=== PATIENT | female | born 1970 | race Caucasian/White ===

== ENCOUNTER → 2017-04-30 | Outpatient (CLI) | payer OTHER | END | disposition home or self-care (01) | LOC: PLD 13:05 | DX: R87.810 Cervical high risk human papillomavirus (HPV) DNA test positive (principal) | CPT/HCPCS: 88305 ==

== ENCOUNTER 2021-08-23 22:07 | Inpatient (IN) | payer SELFPAY ==
[~2021-08-23] VITALS: Ht 167.6 cm; Wt 159.9 kg
[2021-08-23 23:53] LABS: BASOPHILS ABSOLUTE AUTO 0.04 K/mm3 (0.00-0.23); BASOPHILS PERCENT AUTO 1 % (0-2); EOSINOPHILS PERCENT AUTO 4 % (0-6); Hematocrit 42.8 % (33.0-51.0); IMMATURE GRAN ABSOLUTE AUTO 0.03 K/mm3 (0.00-0.10); IMMATURE GRAN PERCENT AUTO 0 % (0-1); LYMPHOCYTES ABSOLUTE AUTO 0.76 K/mm3 (0.84-5.20); LYMPHOCYTES PERCENT AUTO 9 % (21-46); MONOCYTES ABSOLUTE AUTO 0.61 K/mm3 (0.16-1.47); MONOCYTES PERCENT AUTO 7 % (4-13); Mean Corpuscular HGB 28.5 pg (26.0-34.0); Mean Corpuscular HGB Conc 32.7 g/dL (31.5-36.5); Mean Corpuscular Volume 87 fL (80-100); Mean Platelet Volume 10.3 fL (9.1-12.4); NEUTROPHILS ABSOLUTE AUTO 6.82 K/mm3 (1.96-9.15); NEUTROPHILS PERCENT AUTO 80 % (41-73); Platelet Count 286 K/mm3 (150-400); RDW Coefficient Variation 13.3 % (11.7-14.2); RDW Standard Deviation 42.3 fL (35.1-46.3); Red Blood Cell Count 4.92 M/mm3 (3.80-5.20); White Blood Cell Count 8.56 K/mm3 (4.00-11.30)
[2021-08-24 00:10] LABS: Albumin, Blood 3.8 g/dL (3.4-5.0); Albumin/Globulin Ratio 1.1 (0.8-1.8); Bilirubin, Total 0.8 mg/dL (0.1-1.0); Bun/Creatinine Ratio 13.9 (12.0-20.0); Calcium, Blood 9.2 mg/dL (8.5-10.1); Creatinine, Blood 0.72 mg/dL (0.40-1.00); Globulin, Blood 3.5 g/dL (2.2-4.0); Potassium, Blood 4.1 mmol/L (3.5-5.5); Total Protein, Blood 7.3 g/dL (6.4-8.2)
[2021-08-24 01:53] LABS: Influenza B, PCR NEGATIVE (NEGATIVE); Resp Syncytial Virus, PCR NEGATIVE (NEGATIVE); SARS-Cov-2 (COVID-19) PCR, MMC NEGATIVE (NEGATIVE)
[2021-08-24 01:58] LABS: Influenza A, PCR POSITIVE (NEGATIVE)
[2021-08-24 05:07] LABS: BASOPHILS ABSOLUTE AUTO 0.05 K/mm3 (0.00-0.23); BASOPHILS PERCENT AUTO 1 % (0-2); EOSINOPHILS ABSOLUTE AUTO 0.19 K/mm3 (0.00-0.68); EOSINOPHILS PERCENT AUTO 2 % (0-6); Hematocrit 41.3 % (33.0-51.0); Hemoglobin 13.5 g/dL (11.5-16.0); IMMATURE GRAN ABSOLUTE AUTO 0.03 K/mm3 (0.00-0.10); IMMATURE GRAN PERCENT AUTO 0 % (0-1); LYMPHOCYTES ABSOLUTE AUTO 0.95 K/mm3 (0.84-5.20); LYMPHOCYTES PERCENT AUTO 11 % (21-46); MONOCYTES ABSOLUTE AUTO 0.85 K/mm3 (0.16-1.47); MONOCYTES PERCENT AUTO 10 % (4-13); Mean Corpuscular HGB 28.7 pg (26.0-34.0); Mean Corpuscular HGB Conc 32.7 g/dL (31.5-36.5); Mean Corpuscular Volume 88 fL (80-100); NEUTROPHILS ABSOLUTE AUTO 6.65 K/mm3 (1.96-9.15); NEUTROPHILS PERCENT AUTO 76 % (41-73); Platelet Count 249 K/mm3 (150-400); RDW Coefficient Variation 13.3 % (11.7-14.2); RDW Standard Deviation 43.1 fL (35.1-46.3); White Blood Cell Count 8.72 K/mm3 (4.00-11.30)
[2021-08-24 05:42] LABS: Albumin, Blood 3.4 g/dL (3.4-5.0); Bilirubin, Total 0.5 mg/dL (0.1-1.0); Bun/Creatinine Ratio 13.8 (12.0-20.0); Calcium, Blood 8.6 mg/dL (8.5-10.1); Creatinine, Blood 0.72 mg/dL (0.40-1.00); Globulin, Blood 3.3 g/dL (2.2-4.0); Potassium, Blood 3.9 mmol/L (3.5-5.5); Total Protein, Blood 6.7 g/dL (6.4-8.2)
--- NOTE | 2021-08-24 06:51 | NUR ---
SHIFT SUMMARY PT ARRIVED TO ICU FROM ER [facility]IA [facility]. STANDBY ASSIST TX TO ICU BED. PT ALERT AND ORIENTED. FOLLOWING ALL COMMANDS. BECOMES DYSPNEIC c EXERTION, ON 2-4LPM O2 VIA NC, PLACED ON CPAP WHILE SLEEPING, PT WEARS CPAP AT HOME WHILE SLEEPING. PT DENIES CP BUT C/O SOB. PT HYPERTENSIVE, MEDICATED WITH 10MG HYDRALAZINE BY ER NURSE WHICH LOWERED BP FOR ABOUT 1.5 HRS. PT WITH SBP >170 THIS MORNING AROUND 0600, HOSPITALIST NOTIFIED AND NEW ORDERS FOR 10-20MG HYDRALAZINE. 20MG HYDRALAZINE GIVEN @ 0645. PT ABLE TO AMBULATE TO BEDSIDE COMMODE WITH STANDY ASSISTANCE TO MONITOR LINES. REPORT TO ONCOMING NURSE
--- NOTE | 2021-08-24 07:15 | NUR ---
TOOK OVER CARE OF PT AT 0700, PT RESTING ON BIPAP. PT STATES SHE GET SOB AT BASELINE AMBULATING AT HOME, THAT SHE IS NOT PRESCRIBED ANY MEDICATIONS EITHER.
--- NOTE | 2021-08-24 16:13 | NUR ---
PT TRANSFERED TO MEDICAL FLOOR ON 2L N/C O2. STOOD TO TRANSFER TO [facility] AND WAS STEADY WITH STANDBY ASSIST. SOB ON EXERTION NOTICED. SHE SAID SHE DOES NOT FEEL SOB AT REST, BUT LOOKS LIKE INCREASED WORK OF BREATHING AT REST, RESP RATE 28 PER MINUTE. PT DENIES PAIN.
--- NOTE | 2021-08-24 18:32 | NUR ---
SHIFT SUMMARY MS EDGE IS A&OX4, ON 2L N/C, SAT 90% ON CONTINUOUS PULSE OX, RESP RATE 24 TO [address] UP TO 117 ON EXERTION. PRODUCTIVE COUGH. INCONTINENCE OF URINE WITH COUGHING, UP TO BEDSIDE COMMODE WITH 1 PERSON ASSISTANCE. C/O HEADACHE (PT SAID SHE THINKS IT IS FROM NO CA[place]) TYLENOL GIVEN FOR COHN. TOLERATED MOST OF SUPPER. BED LOW, CALL LIGHT IN REACH.
--- NOTE | 2021-08-25 05:28 | NUR ---
A & OX4. [place] PRECAUTIONS FOR INFLUENZA. TELE: SINUS TACH AT A HEART OF 97BM. PT ON CPAP ON 3-4LPM. DURING DAY, O2 @2LPM VIA N/C. UP TO BEDSIDE COMMODE TO VOID, 1-ASSIST. ADA DIET. IV TO L) AC. PT DENIED ANY PAIN. SOB NOTED ON EXERTION. HYPERTENSIVE; MEDICATED PER EMAR. BM THIS SHIFT. WILL CONTINUE TO MONITOR.
--- NOTE | 2021-08-25 10:46 | NUR ---
AM NOTE MS EDGE IS OX4, SLEEPY THIS MORNING, AWAKENS WITH VOICE. DENIES SOB AT REST, RESP RATE 20-24 WHILE RESTING. STRONG COUGH, SHE SAID SHE IS COUGHING UP OCCASIONAL SPUTUM. INCREASED WORK OF BREATHING WHEN GETTING UP TO THE BEDSIDE COMMODE. EDEMA TO BUE AND BLE. LEFT HAND IS PUFFY AND HAS A RING ON, FINGERS WARM, NO DECREASED SENSATION. TRIED TO REMOVE RING THIS AM UNSUCCESSFULLY - ELEVATED HAND ON PILLOW AND WILL RETRY. STRESS INCONTINENCE WITH COUGHING, OTHERWISE UP TO BSC WITH STANDY ASSIST. PLAN - ECHO. BED LOW, CALL LIGHT IN REACH.
--- NOTE | 2021-08-25 11:06 | NUR ---
AM UPDATE RING REMOVED AND GIVEN TO PT.
--- NOTE | 2021-08-25 18:23 | NUR ---
SHIFT SUMMARY MS EDGE IS A&OX4. HER BREATHING SEEMS TO BE IMPROVING THROUGHOUT THE DAY. SHE IS STILL ON CONT PULSE OX ON 2L N/C, BUT HAS BEEN MOVING AROUND MORE. SHE IS ABLE TO GET OUT OF BED INDEPENDENTLY TODAY AND WAS ASSISTED TO TAKE A SHOWER. NO C/O CHEST PAIN OR GENERALISED PAIN. ECHO HASN'T BEEN DONE YET. ON TELEMETRY , SR IN THE 70S NOW. PER FLUORESCENT SOLUTION MIXER SHE HAS BEEN SR 80-100 MOST OF THE DAY, OCCASIONALLY ST LOW 100S. EDEMA TO BUE AND BLE, BUT PT FEELS LIKE HER FEET ARE LESS EDEMATUS. BED LOW, CALL LIGHT IN REACH.
--- NOTE | 2021-08-25 18:35 | NUR ---
SHIFT SUMMARY MS PIERCE SLEPT QUITE A BIT OF THE DAY, SAT UP IN HER CHAIR FOR MEALS. STEADY GAIT WITH SB ASSIST AND WALKER TO THE BATHROOM, BED AND CHAIR ALARMS IN USE SHE FORGETS TO USE HER CALL LIGHT. PROTONIX/ NS INFUSIONS CONTINUE. VERY SMALL FORMED BROWN BM WITH A VERY SMALL AMOUNT OF DARK RED BLOOD AROUND IT EARLER THIS SHIFT, THEN PASSED A VERY SMALL DARK RED CLOTTED BLOOD THIS AFTERNOON (UNABLE TO MEASURE MIXED WITH URINE). NO NAUSEA. NO ABDOMINAL DISCOMFORT OR LIGHTHEADENESS TODAY. IN CHAIR NOW, CALL LIGHT IN REACH
--- NOTE | 2021-08-26 07:41 | NUR ---
A & OX4. V/S WNL. O2 AT 2LPM VIA N/C. ADA DIET. NO ACUCHECKS. DROPPLET PRECAUTIONS FOR INFLUENZA. CPAP WITH 3-4LPM AT HS. UP TO BEDSIDE COMMODE INDEPENDANT. BM YESTERDAY. SOB ON EXERTION. STRESS INCONTINENCE. TELE: SINUS TACHY AT A HR OF 97 BPM. WILL CONTINUE TO MONITOR.
[2021-08-26] MEDS ORDERED: Q-Tussin100 MG/5 M PO (16:37)
[2021-08-26] MEDS ORDERED: FURO40 PO (16:37)
[2021-08-26] MEDS ORDERED: OSEL75CA PO (16:37)
[2021-08-26] MEDS ORDERED: LISI5 PO (16:37)
[2021-08-26] MEDS ORDERED: METO25ER PO (16:38)
[2021-08-26] MEDS ORDERED: POTA10T PO (16:38)
--- NOTE | 2021-08-26 17:40 | NUR ---
PT DISCHARGED WITH INSTRUCTIONS 1710, WHEELCHAIR OUT TO PRIVATE CAR. PT REFUSED TO WAIT FOR OXYGEN, RT STATED SHE NEEDED 1L WITH ACTIVITY. HAS PULSE OX AND WONT OVER DO IT. KNOWS RISK AND WANTS TO GO HOME WITHOUT O2. AT BEDSIDE AND WILL DRIVE PT HOME. SENT WITH BELONGINGS.
== END 2021-08-26 17:07 | disposition home or self-care (01) | DRG 871 ==
LOC: ER 22:07 → PCU 08-24 02:57 → ICUE 08-24 04:06 → MEDS 08-24 16:10
PROVIDERS: Physician Assistant; Student in an Organized Health Care Education/Training Program; ADMIT Family Medicine
PROC: 3E03329 Introduction of Other Anti-infective into Peripheral Vein, Percutaneous Approach (ICD-10-PCS; principal; 2021-08-24)
PROC: 5A09357 Assistance with Respiratory Ventilation, Less than 24 Consecutive Hours, Continuous Positive Airway Pressure (ICD-10-PCS; 2021-08-24)
DX: A41.89 Other specified sepsis (principal); J96.01 Acute respiratory failure with hypoxia; Z68.42 Body mass index [BMI] 45.0-49.9, adult; I10 Essential (primary) hypertension; E66.01 Morbid (severe) obesity due to excess calories; G47.33 Obstructive sleep apnea (adult) (pediatric); E87.70 Fluid overload, unspecified; F17.210 Nicotine dependence, cigarettes, uncomplicated; Z20.822 Contact with and (suspected) exposure to COVID-19; J10.1 Influenza due to other identified influenza virus with other respiratory manifestations
CPT/HCPCS: 0241U; 36415; 71045; 80053; 83605; 83880; 84145; 84484; 85025; 93005; 93010; 93306; 94640; 94660; 94664; 94761; 94762; 96365; 96375; 99285-25; A9270; J0360; J0456; J0696; J1650; J1940; J2930; J7030; J7050

== ENCOUNTER 2021-11-11 11:24 | Inpatient (IN) | payer SELFPAY ==
[~2021-11-11] VITALS: Ht 170.2 cm; Wt 151.6 kg
[~2021-11-11 11:24] MED LIST: FURO40 PO; LISI5 PO; METO25ER PO; OSEL75CA PO; POTA10T PO; Q-Tussin100 MG/5 M PO
[2021-11-11 12:15] LABS: BASOPHILS ABSOLUTE AUTO 0.05 K/mm3 (0.00-0.23); BASOPHILS PERCENT AUTO 1 % (0-2); EOSINOPHILS ABSOLUTE AUTO 0.13 K/mm3 (0.00-0.68); EOSINOPHILS PERCENT AUTO 2 % (0-6); Hematocrit 44.7 % (33.0-51.0); Hemoglobin 14.8 g/dL (11.5-16.0); IMMATURE GRAN ABSOLUTE AUTO 0.04 K/mm3 (0.00-0.10); IMMATURE GRAN PERCENT AUTO 1 % (0-1); LYMPHOCYTES ABSOLUTE AUTO 1.52 K/mm3 (0.84-5.20); LYMPHOCYTES PERCENT AUTO 22 % (21-46); MONOCYTES ABSOLUTE AUTO 0.68 K/mm3 (0.16-1.47); MONOCYTES PERCENT AUTO 10 % (4-13); Mean Corpuscular HGB 28.9 pg (26.0-34.0); Mean Corpuscular HGB Conc 33.1 g/dL (31.5-36.5); Mean Corpuscular Volume 87 fL (80-100); Mean Platelet Volume 9.8 fL (9.1-12.4); NEUTROPHILS ABSOLUTE AUTO 4.43 K/mm3 (1.96-9.15); NEUTROPHILS PERCENT AUTO 65 % (41-73); Platelet Count 257 K/mm3 (150-400); RDW Coefficient Variation 14.9 % (11.7-14.2); RDW Standard Deviation 47.8 fL (35.1-46.3); Red Blood Cell Count 5.12 M/mm3 (3.80-5.20); White Blood Cell Count 6.85 K/mm3 (4.00-11.30)
[2021-11-11 12:34] LABS: Influenza A, PCR NEGATIVE (NEGATIVE); Influenza B, PCR NEGATIVE (NEGATIVE); Resp Syncytial Virus, PCR NEGATIVE (NEGATIVE)
[2021-11-11 12:38] LABS: Albumin, Blood 3.8 g/dL (3.4-5.0); Bilirubin, Total 0.8 mg/dL (0.1-1.0); Bun/Creatinine Ratio 12.7 (12.0-20.0); Calcium, Blood 8.5 mg/dL (8.5-10.1); Creatinine, Blood 0.71 mg/dL (0.40-1.00); Globulin, Blood 3.7 g/dL (2.2-4.0); Potassium, Blood 4.1 mmol/L (3.5-5.5); Total Protein, Blood 7.5 g/dL (6.4-8.2)
[2021-11-11 12:51] LABS: SARS-Cov-2 (COVID-19) PCR, MMC POSITIVE (NEGATIVE)
--- NOTE | 2021-11-11 18:16 | NUR ---
REPORT RECIEVED FROM ALLYSON VELA AT 1810.
[2021-11-12 04:15] LABS: BASOPHILS ABSOLUTE AUTO 0.01 K/mm3 (0.00-0.23); BASOPHILS PERCENT AUTO 0 % (0-2); EOSINOPHILS PERCENT AUTO 0 % (0-6); Hematocrit 44.9 % (33.0-51.0); Hemoglobin 14.5 g/dL (11.5-16.0); IMMATURE GRAN ABSOLUTE AUTO 0.04 K/mm3 (0.00-0.10); IMMATURE GRAN PERCENT AUTO 1 % (0-1); LYMPHOCYTES ABSOLUTE AUTO 1.75 K/mm3 (0.84-5.20); LYMPHOCYTES PERCENT AUTO 26 % (21-46); MONOCYTES ABSOLUTE AUTO 0.26 K/mm3 (0.16-1.47); MONOCYTES PERCENT AUTO 4 % (4-13); Mean Corpuscular HGB 28.8 pg (26.0-34.0); Mean Corpuscular HGB Conc 32.3 g/dL (31.5-36.5); Mean Corpuscular Volume 89 fL (80-100); Mean Platelet Volume 9.9 fL (9.1-12.4); NEUTROPHILS ABSOLUTE AUTO 4.61 K/mm3 (1.96-9.15); NEUTROPHILS PERCENT AUTO 69 % (41-73); Platelet Count 265 K/mm3 (150-400); RDW Coefficient Variation 15.3 % (11.7-14.2); RDW Standard Deviation 49.5 fL (35.1-46.3); Red Blood Cell Count 5.04 M/mm3 (3.80-5.20); White Blood Cell Count 6.67 K/mm3 (4.00-11.30)
[2021-11-12 04:39] LABS: Albumin, Blood 3.6 g/dL (3.4-5.0); Bilirubin, Total 0.5 mg/dL (0.1-1.0); Bun/Creatinine Ratio 19.5 (12.0-20.0); Calcium, Blood 8.1 mg/dL (8.5-10.1); Creatinine, Blood 0.72 mg/dL (0.40-1.00); Globulin, Blood 3.7 g/dL (2.2-4.0); Potassium, Blood 4.5 mmol/L (3.5-5.5); Total Protein, Blood 7.3 g/dL (6.4-8.2)
--- NOTE | 2021-11-12 06:27 | NUR ---
SHIFT SUMMARY PT ALERT AND ORIENTED X4. AFEBRILE. HR SR/ST 70-100'S. HYPERTENSIVE TO START SHIFT, RELIEF WITH HOME MEDICATIONS AND PRN LOPRESSOR +HYDRALAZINE. ON 4L NC WHILE AWAKE. ON CPAP WHILE ASLEEP, 5/20 W/ 8L BLEED IN. PT HAS EXPIRATORY WHEEZING BILATERALLY + A HARSH DRY COUGH. REFUSED ADDITIONAL BREATHING TX AFTER FIRST ONE "DIDN'T DO ANYTHING". PT FREQUENTLY NEEDING TO URINATE WHILE AWAKE. INDEPENDENT FOR ADL'S. SLEEPING COMFORTABLY SINCE MIDNIGHT. IN BED WITH CALL ALARM AT SIDE, WILL CONTINUE TO MONITOR UNTIL REPORT GIVEN TO DAYSHIFT RN
--- NOTE | 2021-11-12 08:00 | NUR ---
PT A&OX4. DENIES PAIN. ECG SHOWS SR WITH RATE 60-80S. BP 168/77-SCHEDULED ANTI-HYPERTENSIVE MEDS GIVEN. LOWER EXTREMITIES EDEMATOUS L>R-PT STATES THAT THIS IS HER BASELINE AND THAT SHE TAKES DIURETICS AT HOME INTERMITTENTLY. LUNGS COARSE WITH SCATTERED WZ AND DIMINISHED IN THE BASES. SATS>90% ON 4 LITERS NASAL CANULA. RR 22. MILD EXERTIONAL DYSPNEA NOTED. PT REPORTS OCCASIONAL PRODUCTIVE COUGH-SPECIMEN CUP AT BEDSIDE AND PT AWARE OF THE NEED FOR SPUTUM SPECIMEN. NO GI DISTRESS. PT INCONTINENT OF URINE. SPONGE BATH, NEW ATTENDS, AND LINEN CHANGE DONE BY MARSHA STEINBERG. PT STANDBY ASSIST OOB TO CHAIR FOR BREAKFAST. CALL LIGHT WITHIN REACH.
--- NOTE | 2021-11-12 09:15 | NUR ---
DR. QUILES IN TO SEE PT. FULL UPDATE GIVEN. PT CHANGED TO MED NO TELE STATUS.
--- NOTE | 2021-11-12 10:00 | NUR ---
US IN ROOM TO DO VENOUS DUPLEX OF LOWER EXTREMITIES.
--- NOTE | 2021-11-12 16:00 | NUR ---
PT SITTING AT THE BEDSIDE. LUNGS DIMINISHED TO BASES, BUT NO LONGER COARSE OR WHEEZY. SATS>90% ON 4 LITERS NASAL CANULA. SPUTUM SPECIMEN SENT. VS STABLE. PT DENIES COMPLAINTS. CALL LIGHT WITHIN REACH. PT AGREES TO CALL FOR ASSIST PRN.
--- NOTE | 2021-11-12 17:33 | NUR ---
NO ACUTE CHANGES. REPORT PHONED TO DANE MENDOZA IN PREP TO TRANSFER TO [place] [id number].
--- NOTE | 2021-11-12 18:02 | NUR ---
TRANSFER FROM PCU 13 AT 1800 COVID 19- ISOLATION, FULL CODE, NO ALLERGIES ADMITTED WITH ACUTE HYPOXIA RESPIRATORY FAILURE DUE TO COVID. SKIN IS HEALTHY. BP141/73, 74, 98% 3 L NC. LS EXPIRATORY WHEEZE, PATIENT DENIES FEELING SOB AT THIS TIME. DENIES PAIN. IS ABLE MOVE ALL EXTREMITIES. ALERT AND ORIENTATED X 4. IV- DOUBLE PORT IN RIGHT AC. EDEMA +2 LEFT LE, +3 RIGHT LE. PATIENT FEELS LIKE SHE IS ABLE TO GO HOME. RT WILL NEED TO SET UP CPAP.5 LITERS WITH BLEED IN OF 8 PER REPORT. SHE SHOULD WEAN OFF OF OXYGEN, HOME BASLINE IS 0 LITERS. HISTORY OF: COPD, CHF, HTN, EDEN, CHRONIC NEED OF 02 AT [facility], DVT, METABOLIC SYNDROME , LOW TSH, PRE DIABETIC, OBESITY. PATIENT IS ON REGULAR DIET. NO TELE. SBA, SOMETIMES UP ALONE IN HER ROOM.
--- NOTE | 2021-11-13 04:18 | NUR ---
SUMMARY: PT A/OX4, CALLS APPROPRIATELY TO SPECIFY NEEDS AND IS PLEASANT AND COOPERATIVE W/CARE. SHE REMAINS IN [place] FOR COVID 19 BUT REPORTS FEELING "MUCH BETTER". SHE'S UP INDEPENDENTLY TO BSC AND DENIES SOB AT REST OR W/EXERTION. RT TITRATING O2 AND SHE'S NOW ON 3L O2 VIA NC WA W/4L O2 BLEED IN VIA CPAP WHILE ASLEEP. LS FLUCTUATE BTWN BEING COARSE AND CLEAR AND DIM IN BASES, MOIST HACKING COUGH PERSISTS. LAB REPORTED PREVIOUS SPUTUM SPECIMEN WAS CONTAMINATED SO WAS ORDERED AGAIN, PT AWARE TO ALERT STAFF IF SAMPLE IS OBTAINED. EDEMA TO BLE'S IS 2-3+ BUT IS IMPROVING ON LASIX. AZITHROMYCIN, REMDESIVIR, OLUMIANT AND PREDNISONE BEING RECIEVED FOR COVID TX. NO ACUTE CHANGES, VSS/AFEBRILE. WCTM AND REPORT TO DAY RN.
[2021-11-13 06:23] LABS: Hematocrit 43.4 % (33.0-51.0); Hemoglobin 13.8 g/dL (11.5-16.0); Mean Corpuscular HGB Conc 31.8 g/dL (31.5-36.5); Mean Corpuscular Volume 91 fL (80-100); Mean Platelet Volume 10.3 fL (9.1-12.4); Platelet Count 294 K/mm3 (150-400); RDW Coefficient Variation 15.5 % (11.7-14.2); RDW Standard Deviation 52.4 fL (35.1-46.3); Red Blood Cell Count 4.76 M/mm3 (3.80-5.20); White Blood Cell Count 13.67 K/mm3 (4.00-11.30)
[2021-11-13 07:01] LABS: Bun/Creatinine Ratio 29.4 (12.0-20.0); Calcium, Blood 8.2 mg/dL (8.5-10.1); Creatinine, Blood 0.82 mg/dL (0.40-1.00); Thyroid Stimulating Hormone 1.4 uIU/mL (0.360-4.800); Thyroxine (T4) 7.9 ug/dL (4.8-13.9)
[2021-11-13 07:26] LABS: BAND PERCENT MAN 1 % (0-8); BASOPHILS PERCENT MAN 0 % (0-2); EOSINOPHILS PERCENT MAN 0 % (0-6); LYMPHOCYTES PERCENT MAN 41 % (21-46); MONOCYTES ABSOLUTE MAN 0.82 K/mm3 (0.16-1.47); MONOCYTES PERCENT MAN 6 % (4-13); NEUTROPHILS ABSOLUTE MAN 7.24 K/mm3 (1.96-9.15); SEG NEUTROPHILS PERCENT MAN 52 % (41-73); TOTAL CELLS COUNTED 100
--- NOTE | 2021-11-13 19:47 | NUR ---
SHIFT SUMMARY- PT HAS HAD NO ACUTE CHANGE T/O THE SHIFT. VSS. RT REDUCED PT O2 TO 2L VIA NC WHILE AWAKE. PT HAS RECIEVED 2 DOSES OF REMDESIVIER. REPORT COMPLETED WITH NIGHT RN. NO S&S OF DISTRESS.
--- NOTE | 2021-11-14 06:44 | NUR ---
SUMMARY PT O2 REDUCED TO 2LPM VIA NC. PT DENEIS SOB AT REST. PT USED CPAP THROUGH THE SHIFT. PT HAD NO ISSUES NOTED. PT REPORTS FEELING BETTER THIS EVENING. PT CURRENTLY SLEEPING IN NO DISTRESS. CALL LIGHT IN REACH.
[2021-11-14] MEDS ORDERED: ALBU90OI INH (13:01)
[2021-11-14] MEDS ORDERED: PRED20 PO (13:01)
--- NOTE | 2021-11-14 16:06 | NUR ---
DISCHARGE NOTE- PT WAS GIVEN VERBAL ANE WRITTEN DISCHAGRE INSTRUCTIONS AND ACKNOWLEDGED UNDERSTANDING OF THEM. PT REQUESTED A NOTE FROM DR QUILES STATING THAT SHE HAD BEEN IN THE HOSPITAL FOR THESE DATES. THIS WAS PROVIDED BY DR QUILES. PT STATED SHE HAD NO OTHER QUESTIONS.IV DC'D PRIOR TO DISCHARGE. PT DRESSED HERSELF TO LEAVE THEN WAS ESCORTED OUT VIA WC BY THE MANAGER LABORATORY NO S&S OF DISTRESS NOTED AT THE TIME OF DISCHARGE.
== END 2021-11-14 15:16 | disposition home or self-care (01) | DRG 177 ==
LOC: ER 11:24 → PCU 18:03 → MEDS 11-12 17:51
PROVIDERS: Internal Medicine; Physician Assistant; ADMIT Internal Medicine
PROC: XW033E5 Introduction of Remdesivir Anti-infective into Peripheral Vein, Percutaneous Approach, New Technology Group 5 (ICD-10-PCS; 2021-11-11)
PROC: 8E0ZXY6 Isolation (ICD-10-PCS; 2021-11-11)
PROC: XW0DXM6 Introduction of Baricitinib into Mouth and Pharynx, External Approach, New Technology Group 6 (ICD-10-PCS; principal; 2021-11-12)
DX: U07.1 COVID-19 (principal); J12.82 Pneumonia due to coronavirus disease 2019; J96.01 Acute respiratory failure with hypoxia; Z68.43 Body mass index [BMI] 50.0-59.9, adult; J44.1 Chronic obstructive pulmonary disease with (acute) exacerbation; J45.902 Unspecified asthma with status asthmaticus; J44.0 Chronic obstructive pulmonary disease with (acute) lower respiratory infection; I10 Essential (primary) hypertension; G47.33 Obstructive sleep apnea (adult) (pediatric); E88.81 Metabolic syndrome and other insulin resistance; E03.9 Hypothyroidism, unspecified; E78.1 Pure hyperglyceridemia; F17.210 Nicotine dependence, cigarettes, uncomplicated; E66.9 Obesity, unspecified; Z87.09 Personal history of other diseases of the respiratory system; Z99.81 Dependence on supplemental oxygen; Z79.899 Other long term (current) drug therapy; Z79.01 Long term (current) use of anticoagulants; Z79.811 Long term (current) use of aromatase inhibitors; Z23 Encounter for immunization
CPT/HCPCS: 0241U; 36415; 71046; 80048; 80053; 83880; 84436; 84443; 84484; 85025; 93005; 93010; 93970; 94644; 94645; 94660; 94664; 94761; 94762; 96374; 96375; 99285-25; A9270; C9399; J0248; J0360; J0456; J1650; J1940; J2930; J7050; J7512

== ENCOUNTER → 2024-06-01 | Outpatient (CLI) | payer OTHER ==
[~2024-06-01] MED LIST changes: +ALBU2.5V5 INH; +ALBU90OI INH; +LISI20 PO; +PRED20 PO
[2024-06-07 11:51] LABS: HPV HIGH RISK BY TMA Not Detected; HPV SOURCE Cervical
== END ==
LOC: LAB 10:08 → LAB SHORT 10:08
PROVIDERS: Student in an Organized Health Care Education/Training Program
DX: Z01.419 Encounter for gynecological examination (general) (routine) without abnormal findings (principal)
CPT/HCPCS: 87624; G0123